=== PATIENT | female | born 1995 | race Two or more races ===

== ENCOUNTER 2020-02-27 15:11 | Emergency (ER) | payer OTHER, SELFPAY ==
[2020-02-27 15:51] VITALS: BP 112/74; PULSE 72; RESP 18; TEMP 36.9; O2SAT 99; BMI 22.4
[2020-02-27 16:25] LABS: MANUAL DIFF FLAG NO
[2020-02-27 16:26] LABS: Basophils Percent Auto 0.2 % (0-2); Eosinophils Absolute Auto 0.1 X10*3/uL (0.0-0.4); Eosinophils Percent Auto 1.1 % (0-4); Hemoglobin 13.1 g/dl (12.0-16.0); Imm Gran Abs Auto 0.03 X10*3/uL (0.00-0.03); Imm Gran Pct Auto 0.5 % (0.0-0.4); Lymphocytes Absolute Auto 1.8 X10*3/uL (1.2-4.9); Lymphocytes Percent Auto 28.8 % (20-40); Mean Corpuscular Hemoglobin 26.4 pg (27.0-33.0); Mean Corpuscular Volume 82.5 fL (80-98); Mean Platelet Volume 8.7 fL (9.4-12.3); Monocytes Absolute Auto 0.4 X10*3/uL (0.1-1.2); Monocytes Percent Auto 6.9 % (2-11); Neutrophils Absolute Auto 3.9 X10*3/uL (2.0-8.3); Neutrophils Percent Auto 62.5 % (45-73); Platelet Count 263 X10*3/uL (160-400); Red Blood Count 4.97 X10*6/uL (4.20-5.50); Red Cell Distribution Width 14.5 % (11.0-16.0); White Blood Count 6.2 X10*3/uL (4.8-10.8)
[2020-02-27 17:03] LABS: Alanine Aminotransferase 13 U/L (0-31); Alkaline Phosphatase 68 U/L (39-117); Anion Gap 12 (12-20); Aspartate Amino Transferase 15 U/L (5-31); Bilirubin Total 0.2 mg/dL (0.0-1.0); Blood Urea Nitrogen 8 mg/dL (9-16); Calcium 8.6 mg/dL (8.4-10.2); Carbon Dioxide 28 mmol/L (22-29); Chloride 107 mmol/L (96-108); Creatinine Clr Calc Pharmacy 112.7; Estimated Glomerular Filt Rate > 60; Glucose Random 90 mg/dL (60-115); Potassium 4.7 mmol/l (3.3-5.1); Sodium 142 mmol/L (135-145)
--- NOTE | 2020-02-27 17:07 | ED.GENADULT ---
HPI - General Adult General Chief complaint: General Medical Stated complaint: lung pain Time Seen by Provider: 02/27/20 16:47 Source: patient Mode of arrival: ambulatory Limitations: no limitations History of Present Illness HPI narrative: Patient comes to the emergency room complaining of upper right-sided midback pain started today. Patient complaining of cough worsening the pain. Patient states if she turns her body towards the left side, the right side of her back started hurting. Patient denies fever. Onset (ago): day(s) Radiation: non-radiation Pain Consistency: constant Relieving factors: none Exacerbating factors: movement and other ( Cough) Related Data Allergies Allergy/AdvReac Type Severity Reaction Status Date / Time No Known Allergies Allergy Verified 02/27/20 16:19 Review of Systems Review of Systems: Constitutional : No Weight loss, No Fever, No Chills, No Night Sweats, No Fatigue, No Malaise ENT/Mouth : No Hearing loss, No Ear Pain, No Nasal Congestion, No Sinus Pain, No Hoarseness, No sore throat, No Rhinorrhea, No Swallowing Difficulty Eyes: No Eye Pain, No Swelling, No Redness, No Foreign Body, No Discharge, No Vision Changes Cardiovascular : No Chest Pain, No SOB, No Dyspnea on Exertion, No Orthopnea, No Edema, No Palpitations Respiratory : mild Cough, No Sputum, No Wheezing, No Smoke Exposure, No Dyspnea Gastrointestinal : No Nausea, No Vomiting, No Diarrhea, No Constipation, No abdominal Pain, No Hematochezia, No Melena Genitourinary : no irregular bleeding, No Dysuria, No Urinary Frequency, No Hematuria, No Urinary Incontinence, No Urgency, No Flank Pain, No Urinary Flow Changes, No Hesitancy Musculoskeletal : No joint pain, right upper back pain Skin : No Skin Lesions, No rash Neuro : No Weakness, No Numbness, No Paresthesias, No Loss of Consciousness, No Dizziness, No Headache Psych : No Anxiety/Panic, No Depression, No SI/HI/AH/VH, No Social Issues, Heme/Lymph: No Bruising, No Bleeding,No Lymphadenopathy Endocrine : No Polyuria, No Polydipsia, No Temperature Intolerance PMFSH Past Medical History Medical History Patient denies medical problems Patient denies significant medical history Social History Social History Alcohol intake: never Smoking Status: Current every day smoker Smoked in Last 30 Days: Yes Use of substances other than those prescribed or required for medical reasons: Yes Substance Use Type: Marijuana Substance Use Frequency: Occasionally Last Used Substance: Unknown Any prior treatment program specific to substance use: No Advance Directives: No Advance Directives Information Provided: Yes Physical Exam Vital Signs: Vital Signs: Vital Signs Temp Pulse Resp BP Pulse Ox 02/27/20 17:47 98.4 F 71 18 113/69 02/27/20 15:51 98.4 F 72 18 112/74 99 Body Mass Index 22.4 Appearance: Alert. Oriented X3. No acute distress. Eyes: Pupils equal, round and reactive to light. ENT: Pharynx normal. Neck: Normal inspection. Neck supple. No lymph nodes noted. No crepitus CVS: Normal heart rate and rhythm. Pulses normal. Normal S1 and S2 Respiratory: No respiratory distress. Breath sounds normal. No Wheezing. No rales Abdomen: Soft and nontender. No rigidity. No distention. good BS x4 Skin: Skin warm and dry. Normal skin color. Normal skin turgor. Extremities: No lower extremity edema. No lower extremity edema. No Lacerations. No Rash back: tenderness to palpation over the right upper back Neuro: Oriented X 3. No motor deficit. No sensory deficit. Moving all extermities. No slurred speech. Course Course Course Narrative: I discussed labs and imaging with the patient, patient likely having musculoskeletal Medical Decision Making MDM Narrative Medical decision making narrative: patient's pain likely musculoskeletal Lab Data Result diagrams: 02/27/20 16:17 02/27/20 16:17 Labs: Lab Results 02/27/20 02/27/20 02/27/20 Range/Units 16:17 16:17 16:17 WBC 6.2 (4.8-10.8) X10*3/uL RBC 4.97 (4.20-5.50) X10*6/uL Hgb 13.1 (12.0-16.0) g/dl Hct 41.0 (37-47) % MCV 82.5 (80-98) fL MCH 26.4 L (27.0-33.0) pg MCHC 32.0 (31.0-35.0) g/dl RDW 14.5 (11.0-16.0) % Plt Count 263 (160-400) X10*3/uL MPV 8.7 L (9.4-12.3) fL Immature Gran % (Auto) 0.5 H (0.0-0.4) % Neut % (Auto) 62.5 (45-73) % Lymph % (Auto) 28.8 (20-40) % [place] % (Auto) 6.9 (2-11) % Eos % (Auto) 1.1 (0-4) % Baso % (Auto) 0.2 (0-2) % Lymph # (Auto) 1.8 (1.2-4.9) X10*3/uL [place] # (Auto) 0.4 (0.1-1.2) X10*3/uL Eos # (Auto) 0.1 (0.0-0.4) X10*3/uL Baso # (Auto) 0.0 (0.0-0.2) X10*3/uL Abs Immat Gran (auto) 0.03 (0.00-0.03) X10*3/uL Absolute Neuts (auto) 3.9 (2.0-8.3) X10*3/uL Absolute Nucleated RBC 0.000 (0.0-0.012) X10*3/uL Nucleated RBC % (auto) 0.0 (0.0-0.2) /100WBC Hold Blue Top SEE NOTE Sodium 142 (135-145) mmol/L Potassium 4.7 (3.3-5.1) mmol/l Chloride 107 (96-108) mmol/L Carbon Dioxide 28 (22-29) mmol/L Anion Gap 12 (12-20) BUN 8 L (9-16) mg/dL Creatinine 0.67 (0.5-1.4) mg/dL Estim Creat Clear Calc 112.7 Estimated GFR > 60 Random Glucose 90 (60-115) mg/dL Calcium 8.6 (8.4-10.2) mg/dL Total Bilirubin 0.2 (0.0-1.0) mg/dL AST 15 (5-31) U/L ALT 13 (0-31) U/L Alkaline Phosphatase 68 (39-117) U/L Total Protein 7.0 (6.5-8.0) g/dL Albumin 4.0 (3.5-5.0) g/dL Urine Color Urine Appearance Urine pH (5.0-8.0) Ur Specific [place] (1.005-1.025) Urine Protein (NEG-TRACE) MG/DL Urine Glucose (UA) (NEG) MG/DL Urine Ketones (NEG) MG/DL Urine Blood (NEG) Urine Nitrite (NEG) Ur Leukocyte Esterase (NEG) Urine Test (NEGATIVE) 02/27/20 02/27/20 Range/Units 17:20 17:20 WBC (4.8-10.8) X10*3/uL RBC (4.20-5.50) X10*6/uL Hgb (12.0-16.0) g/dl Hct (37-47) % MCV (80-98) fL MCH (27.0-33.0) pg MCHC (31.0-35.0) g/dl RDW (11.0-16.0) % Plt Count (160-400) X10*3/uL MPV (9.4-12.3) fL Immature Gran % (Auto) (0.0-0.4) % Neut % (Auto) (45-73) % Lymph % (Auto) (20-40) % [place] % (Auto) (2-11) % Eos % (Auto) (0-4) % Baso % (Auto) (0-2) % Lymph # (Auto) (1.2-4.9) X10*3/uL [place] # (Auto) (0.1-1.2) X10*3/uL Eos # (Auto) (0.0-0.4) X10*3/uL Baso # (Auto) (0.0-0.2) X10*3/uL Abs Immat Gran (auto) (0.00-0.03) X10*3/uL Absolute Neuts (auto) (2.0-8.3) X10*3/uL Absolute Nucleated RBC (0.0-0.012) X10*3/uL Nucleated RBC % (auto) (0.0-0.2) /100WBC Hold Blue Top Sodium (135-145) mmol/L Potassium (3.3-5.1) mmol/l Chloride (96-108) mmol/L Carbon Dioxide (22-29) mmol/L Anion Gap (12-20) BUN (9-16) mg/dL Creatinine (0.5-1.4) mg/dL Estim Creat Clear Calc Estimated GFR Random Glucose (60-115) mg/dL Calcium (8.4-10.2) mg/dL Total Bilirubin (0.0-1.0) mg/dL AST (5-31) U/L ALT (0-31) U/L Alkaline Phosphatase (39-117) U/L Total Protein (6.5-8.0) g/dL Albumin (3.5-5.0) g/dL Urine Color YELLOW Urine Appearance CLEAR Urine pH 7.0 (5.0-8.0) Ur Specific [place] 1.020 (1.005-1.025) Urine Protein NEG (NEG-TRACE) MG/DL Urine Glucose (UA) NEG (NEG) MG/DL Urine Ketones NEG (NEG) MG/DL Urine Blood NEG (NEG) Urine Nitrite NEG (NEG) Ur Leukocyte Esterase NEG (NEG) Urine Test NEGATIVE (NEGATIVE) Imaging Data Chest x-ray: Radiologist's impression: No evidence for acute disease. Discharge Plan Discharge Clinical Impression: Back pain Patient Disposition: Home, Self-Care Instructions: Back Pain (ED) Additional Instructions: Please follow-up with your primary care physician tomorrow. If you have any worsening or new symptoms, please return to the emergency room or call 911
[2020-02-27 17:26] LABS: Glucose Urine UA NEG (NEG); Leukocyte Esterase Urine NEG (NEG); Nitrite Urine NEG (NEG); Urine Blood NEG (NEG); Urine Ketones NEG (NEG); Urine Protein NEG (NEG-TRACE)
[2020-02-27 17:29] LABS: Appearance Urine CLEAR; Color Urine YELLOW
[2020-02-27 17:30] LABS: UPreg QC Valid YES
[2020-02-27 17:31] LABS: Urine Pregnancy NEGATIVE (NEGATIVE)
[2020-02-27 17:47] VITALS: BP 113/69; PULSE 71; RESP 18; TEMP 36.9
--- NOTE | 2020-02-27 17:51 | PC.NURSE ---
patient a&ox3, talking on cell phone, vitals obtained/stable, will continue to monitor.
--- NOTE | 2020-02-27 19:10 | PC.NURSE ---
Pt resting in stretcher c/o pain to right middle back area. Pt A&Ox3, skin w/d. respirations easy, n/l. Pt awaiting further orders.
--- NOTE | 2020-02-27 19:26 | XR_ITS ---
EXAMINATION: CHEST 2 VIEWS CLINICAL INFORMATION: Pain with inspiration. COMPARISON: July 06, 2014. TECHNIQUE: PA and lateral views of the chest were obtained. FINDINGS: The cardiac silhouette is not enlarged. The mediastinal and hilar contours are unremarkable. There are neither pleural effusions nor pneumothoraces. There are no consolidations. The osseous structures are stable. IMPRESSION: No evidence for acute disease.
[2020-02-27] MEDS: Ibuprofen 600 MG TABLET PO (20:51)
== END 2020-02-27 20:56 | disposition home or self-care (01) ==
PROVIDERS: Emergency Provider Emergency Medicine
DX: M54.5 Low back pain (principal); R05 Cough; R07.1 Chest pain on breathing; F17.200 Nicotine dependence, unspecified, uncomplicated; Z71.6 Tobacco abuse counseling
CPT/HCPCS: 36415; 71046; 80053; 81003; 81025; 85025; 99283; 99284

== ENCOUNTER 2020-02-28 16:45 | Outpatient (REF) | payer OTHER, SELFPAY | END 2020-02-28 16:46 | disposition home or self-care (01) | LOC: HO.LAB 16:45 | PROVIDERS: Visit Provider Internal Medicine | DX: Z20.828 Contact with and (suspected) exposure to other viral communicable diseases (principal) | CPT/HCPCS: 87635 ==

== ENCOUNTER 2020-09-22 20:09 | Emergency (ER) | payer OTHER, SELFPAY ==
--- NOTE | ~2020-09-22 | XR_ITS ---
EXAMINATION: XR HAND, LEFT CLINICAL INFORMATION: Swelling status post injury COMPARISON: None TECHNIQUE: PA, lateral, and oblique views of the left hand. FINDINGS: The bones and soft tissues are normal. No fracture. Alignment is anatomic. Joint spaces are maintained. Faint calcifications about the soft tissues of the first metacarpal head noted likely dystrophic. XR/XR hand LT 2V IMPRESSION: No fracture.
[2020-09-22 20:13] VITALS: BP 118/73; PULSE 69; RESP 16; TEMP 37.1; O2SAT 100; BMI 20.3
--- NOTE | 2020-09-22 21:17 | ED.EXTPRO ---
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 got superficial skin avulsion at the base of left thumb complaining of pain in the whole thumb without any significant swelling or bruise normal sensation Related Data Previous Rx's Medication Instructions Recorded ibuprofen 600 mg PO Q6H PRN #14 tab 09/22/20 Allergies Allergy/AdvReac Type Severity Reaction Status Date / Time No Known Allergies Allergy Verified 02/27/20 16:19 Review of Systems Review of Systems: Yes all other systems are reviewed and are negative PMFSH Past Medical History Medical History Patient denies medical problems Patient denies significant medical history Social History Social History Alcohol intake: never Smoking Status: Current every day smoker Substance Use Type: Marijuana Advance Directives: No Advance Directives Information Provided: No Patient : No Physical Exam Vital Signs: Vital Signs: Last Vital Signs Temp 98.8 F 09/22/20 20:13 Pulse 69 09/22/20 20:13 Resp 16 09/22/20 20:13 BP 118/73 09/22/20 20:13 Pulse Ox 100 09/22/20 20:13 Body Mass Index 20.3 Const: General: no acute distress Extrem: Hand/finger images: 1. Superficial skin avulsion Neurovascular intact no swelling of the left thumb Good range of movement Procedures Orthopedic Splinting/Casting Injury #1: Side: left Upper Extremity Injury Location: finger (Left thumb) Upper Extremity Immobilizer: aluminum form splint Discharge Plan Discharge Clinical Impression: Contusion of left thumb Qualifiers: Encounter type: initial encounter Damage to nail status: without damage Qualified Code(s): S60.012A - Contusion of left thumb without damage to nail, initial encounter Patient Disposition: Home, Self-Care Instructions: Contusion in Adults (ED) Additional Instructions: Local care as advised. Splint for support Ibuprofen for pain Prescriptions: New ibuprofen 600 mg tablet 600 mg PO Q6H PRN (Reason: pain) Qty: 14 RF: 0
[2020-09-22] MEDS: Ibuprofen 600 MG TABLET PO (22:19)
== END 2020-09-22 22:49 | disposition home or self-care (01) ==
PROVIDERS: Emergency Provider Internal Medicine
DX: S60.012A Contusion of left thumb without damage to nail, initial encounter (principal); W23.1XXA Caught, crushed, jammed, or pinched between stationary objects, initial encounter; F17.200 Nicotine dependence, unspecified, uncomplicated; F12.90 Cannabis use, unspecified, uncomplicated; Y93.89 Activity, other specified; Y92.59 Other trade areas as the place of occurrence of the external cause; Y99.0 Civilian activity done for income or pay
CPT/HCPCS: 29130; 73120; 99283

== ENCOUNTER → 2020-09-24 11:07 | Outpatient (BNVA) | payer OTHER, SELFPAY | PROVIDERS: Visit Provider Physician Assistant Medical | DX: S61.012A Laceration without foreign body of left thumb without damage to nail, initial encounter (principal); W31.89XA Contact with other specified machinery, initial encounter | CPT/HCPCS: 99203 ==

== ENCOUNTER → 2020-09-28 13:02 | Outpatient (BNVA) | payer OTHER, SELFPAY | PROVIDERS: Visit Provider Physician Assistant | DX: S61.112A Laceration without foreign body of left thumb with damage to nail, initial encounter (principal); X58.XXXA Exposure to other specified factors, initial encounter | CPT/HCPCS: 99213 ==

== ENCOUNTER 2020-11-15 13:39 | Emergency (ER) | payer OTHER, SELFPAY ==
[2020-11-15 14:02] VITALS: BP 105/71; PULSE 71; RESP 16; TEMP 36.7; O2SAT 97; BMI 22.3
--- NOTE | 2020-11-15 14:43 | ED_ITS ---
HPI - General Adult General Chief complaint: General Medical Stated complaint: multiple complaints Time Seen by Provider: 11/15/20 14:40 Source: patient and diplomatic interpreter/translator Mode of arrival: ambulatory Limitations: no limitations History of Present Illness HPI narrative: 25-year-old female came in for evaluation of anxiety, patient been suffering from anxiety since her childhood, patient get episodes of anxiety inform of hyperventilation, unable to speak, patient had episode of anxiety last night here today for bilateral leg pain, patient declined any trauma since yesterday. Related Data Previous Rx's Medication Instructions Recorded ibuprofen 600 mg PO Q6H PRN #14 tab 09/22/20 cefuroxime axetil 500 mg PO BID #14 tab 11/15/20 hydroxyzine HCl 25 mg PO TID PRN #20 tab 11/15/20 Allergies Allergy/AdvReac Type Severity Reaction Status Date / Time No Known Allergies Allergy Verified 02/27/20 16:19 Review of Systems Review of Systems: All other systems are reviewed and are negative Constitutional: Reports as per HPI and Reports no additional constitutional complaints Eyes: Reports as per HPI and Reports no additional eye complaints Reports system reviewed and no additional complaints, except as documented Cardiovascular: Reports as per HPI and Reports no additional cardiovascular complaints Respiratory: Reports as per HPI and Reports no additional respiratory complaints Gastrointestinal: Reports as per HPI and Reports no additional gastrointestinal complaints Genitourinary: Reports no additional female genitourinary complaints Musculoskeletal: Reports no additional musculoskeletal complaints Skin/Breast: Reports system reviewed and no additional complaints, except as docu Psychiatric: Reports no additional psychiatric complaints Endocrine: Reports no additional endocrine complaints Hematologic/Lymphatic: Reports no additional hematologic/lymphatic complaints Allergic/Immunologic: Reports no additional allergic/immunologic complaints Reports system reviewed and no additional complaints, except as documented and Reports Abnormal speech present [facility] Past Medical History Medical History Patient denies medical problems Patient denies significant medical history Social History Social History Alcohol intake: never Patient Tobacco Use Status: Never used Tobacco Substance Use Type: Marijuana Advance Directives: No Advance Directives Information Provided: No Patient : No Physical Exam Vital Signs: Vital Signs: Last Vital Signs Temp 98.6 F 11/15/20 16:00 Pulse 16 L 11/15/20 16:00 Resp 16 07/08/21 16:00 BP 100/72 11/15/20 16:00 Pulse Ox 99 11/15/20 16:00 Body Mass Index 22.3 vital signs have been reviewed as appeared to be correct. Blood pressure normal. Heart rate normal. Respiration rate normal. Temperature normal. Oxygen saturation normal. Appearance: Alert. Oriented X3. No acute distress. Head: Normal external exam. Normocephalic. Atraumatic. No Hernández signs noted. No raccoon eyes noted Eyes: PERRLA. EOMI. Conjunctiva and sclera normal. Eyelids normal. ENT: TM's Normal. Pharynx normal. Uvula midline. Moist mucous membranes. No trismus noted. No drooling noted. No muffled voice noted. Neck: Normal inspection. Neck supple. FROM. No adenopathy. Thyroid Normal. No meningeal signs. No neck mass noted. CVS: Normal heart rate and rhythm. Heart sound normal. No murmurs noted. Pulses normal throughout. Respiratory: No respiratory distress. Painless inspiration. Breath sounds normal. No wheezes/rales/rhonchi noted. Chest nontender. No accessory muscle usage noted or decreased air movement noted. Abdomen: Soft and nontender. Bowel sounds normal in all 4 quadrants. No distention noted. No organomegaly noted. No visible injury noted. Back: No CVA tenderness. Full range of motion noted. Skin: Skin warm and dry. Normal skin color. Normal skin turgor. No rashes/lesions/lacerations noted. Extremities: No lower extremity edema. Extremities exhibit normal range of motion. Extremities nontender. Neuro: Oriented X 3. No motor deficit. No sensory deficit. Reflexes normal. Course Course Course Narrative: chronic anxiety, no depression, no SI. Start patient on Atarax and have the patient follow-up with PCP for further evaluation. Medical Decision Making Lab Data Result diagrams: 11/15/20 15:35 11/15/20 15:35 Labs: Lab Results 11/15/20 11/15/20 11/15/20 Range/Units 15:35 15:35 15:35 WBC 14.1 H (4.8-10.8) X10*3/uL RBC 5.30 (4.20-5.50) X10*6/uL Hgb 13.9 (12.0-16.0) g/dl Hct 42.9 (37-47) % MCV 80.9 (80-98) fL MCH 26.2 L (27.0-33.0) pg MCHC 32.4 (31.0-35.0) g/dl RDW 14.1 (11.0-16.0) % Plt Count 345 D (160-400) X10*3/uL MPV 8.5 L (9.4-12.3) fL Immature Gran % (Auto) 0.5 H (0.0-0.4) % Neut % (Auto) 75.0 H (45-73) % Lymph % (Auto) 18.7 L (20-40) % [place] % (Auto) 5.3 (2-11) % Eos % (Auto) 0.4 (0-4) % Baso % (Auto) 0.1 (0-2) % Lymph # (Auto) 2.6 (1.2-4.9) X10*3/uL [place] # (Auto) 0.8 (0.1-1.2) X10*3/uL Eos # (Auto) 0.1 (0.0-0.4) X10*3/uL Baso # (Auto) 0.0 (0.0-0.2) X10*3/uL Abs Immat Gran (auto) 0.07 H (0.00-0.03) X10*3/uL Absolute Neuts (auto) 10.6 H (2.0-8.3) X10*3/uL Absolute Nucleated RBC 0.000 (0.0-0.012) X10*3/uL Nucleated RBC % (auto) 0.0 (0.0-0.2) /100WBC Urine Color YELLOW Urine Appearance HAZY Urine pH 6.0 (5.0-8.0) Ur Specific [place] >= 1.030 H (1.005-1.025) Urine Protein NEG (NEG-TRACE) MG/DL Urine Glucose (UA) NEG (NEG) MG/DL Urine Ketones NEG (NEG) MG/DL Urine Blood NEG (NEG) Urine Nitrite NEG (NEG) Ur Leukocyte Esterase 2+ H (NEG) Urine RBC 0-2 (0) /HPF Urine WBC 10-14 H (0-4) /HPF Ur Squamous Epith Cells TRACE /LPF Urine Bacteria TRACE /LPF Urine Mucus TRACE /LPF Urine Test NEGATIVE (NEGATIVE) Discharge Plan Discharge Clinical Impression: Anxiety UTI (urinary tract infection) Qualifiers: Urinary tract infection type: acute cystitis Hematuria presence: without hematuria Qualified Code(s): N30.00 - Acute cystitis without hematuria Patient Disposition: Home, Self-Care Instructions: Anxiety (ED), Urinary Tract Infection in Women (ED) Prescriptions: New hydroxyzine HCl 25 mg tablet 25 mg PO TID PRN (Reason: anxiety) Qty: 20 RF: 0 cefuroxime axetil 500 mg tablet 500 mg PO BID Qty: 14 RF: 0 No Action ibuprofen 600 mg tablet 600 mg PO Q6H PRN (Reason: pain) Qty: 14 RF: 0 Referrals: Physician,None [Primary Care Provider] - 2 days
[2020-11-15 16:00] VITALS: BP 100/72; PULSE 16; RESP 16; TEMP 37; O2SAT 99
[2020-11-15 16:00] LABS: MANUAL DIFF FLAG NO
[2020-11-15 16:04] LABS: Basophils Percent Auto 0.1 % (0-2); Eosinophils Absolute Auto 0.1 X10*3/uL (0.0-0.4); Eosinophils Percent Auto 0.4 % (0-4); Hematocrit 42.9 % (37-47); Hemoglobin 13.9 g/dl (12.0-16.0); Imm Gran Abs Auto 0.07 X10*3/uL (0.00-0.03); Imm Gran Pct Auto 0.5 % (0.0-0.4); Lymphocytes Absolute Auto 2.6 X10*3/uL (1.2-4.9); Lymphocytes Percent Auto 18.7 % (20-40); Mean Corpuscular HGB Conc 32.4 g/dl (31.0-35.0); Mean Corpuscular Hemoglobin 26.2 pg (27.0-33.0); Mean Corpuscular Volume 80.9 fL (80-98); Mean Platelet Volume 8.5 fL (9.4-12.3); Monocytes Absolute Auto 0.8 X10*3/uL (0.1-1.2); Monocytes Percent Auto 5.3 % (2-11); Neutrophils Absolute Auto 10.6 X10*3/uL (2.0-8.3); Platelet Count 345 X10*3/uL (160-400); Red Cell Distribution Width 14.1 % (11.0-16.0); White Blood Count 14.1 X10*3/uL (4.8-10.8)
[2020-11-15 16:11] LABS: Glucose Urine UA NEG (NEG); Leukocyte Esterase Urine 2+ (NEG); Nitrite Urine NEG (NEG); Specific Gravity - Urine >= 1.030 (1.005-1.025); UACC Culture Trigger YES; Urine Blood NEG (NEG); Urine Ketones NEG (NEG); Urine Protein NEG (NEG-TRACE)
[2020-11-15 16:13] LABS: UPreg QC Valid YES; Urine Pregnancy NEGATIVE (NEGATIVE)
[2020-11-15 16:14] LABS: Appearance Urine HAZY; Color Urine YELLOW
[2020-11-15 16:22] LABS: Bacteria Urine TRACE /LPF; Mucus Urine TRACE /LPF; RBC Urine 0-2 /HPF (0); Squamous Epithelial Cell Urine TRACE /LPF
[2020-11-15 16:28] LABS: Anion Gap 14 (12-20); Blood Urea Nitrogen 7 mg/dL (9-16); Calcium 9.5 mg/dL (8.4-10.2); Carbon Dioxide 22 mmol/L (22-29); Chloride 107 mmol/L (96-108); Creatinine Clr Calc Pharmacy 106.9; Estimated Glomerular Filt Rate > 60; Glucose Random 77 mg/dL (60-115); Potassium 4.1 mmol/L (3.3-5.1); Sodium 139 mmol/L (135-145)
[2020-11-15] MEDS: Ibuprofen 600 MG TABLET PO (16:43)
== END 2020-11-15 16:46 | disposition home or self-care (01) ==
PROVIDERS: Emergency Provider Emergency Medicine
DX: F41.9 Anxiety disorder, unspecified (principal); N30.00 Acute cystitis without hematuria
CPT/HCPCS: 36415; 80048; 81001; 81003; 81025; 82550; 85025; 87086; 99283; 99284

== ENCOUNTER 2024-08-10 11:27 | Emergency (ER) | payer OTHER, SELFPAY ==
--- NOTE | ~2024-08-10 | CT_ITS ---
EXAMINATION: CT HEAD AND FACIAL BONES WITHOUT CONTRAST CLINICAL INFORMATION: Right orbital ecchymosis after trauma. 29-year-old female. COMPARISON: None TECHNIQUE: Contiguous axial imaging was performed from the skull base to vertex, as well as the maxillofacial bones/mandible without intravenous administration of contrast. Multiplanar reformatted imaging was constructed from the axial data set. This CT examination was performed using dose optimization techniques as appropriate, variously including the following: *Automated exposure control *Adjustment of mA and/or kV according to patient size (this includes techniques or standardized protocols for targeted exams where dose is matched to indication/reason for exam; i.e. extremities or head) *Use of iterative reconstruction technique FINDINGS: CT HEAD: There is no evidence of intracranial hemorrhage or extra-axial fluid collection. There is no mass effect, or edema. No CT evidence of acute territorial infarct. Ventricles, sulci, and cisterns are normal in size and configuration for patient age. No hydrocephalus. No midline shift. Negative hyperdense MCA sign. Negative insular ribbon sign. No significant white matter abnormalities. Normal pituitary. Globes and orbital contents image normally. No extracranial soft tissue abnormalities. The calvarium and skull base are intact without fracture. CT MAXILLOFACIAL BONES: The mandible is intact without fracture. The TM joints are normally oriented. The nasal bones, nasal process, maxilla, orbits, zygomatic arches, pterygoid plates, and sphenoid bone are intact without fracture. No significant nasal septal deviation. Small torus palatini. Paranasal sinuses are normally pneumatized throughout. No paranasal sinus fractures. The mastoids and tympanic cavities are normally aerated. Imaged maxillofacial/neck soft tissues appear normal. CT/CT facial bones wo IV con IMPRESSION: 1. No acute intracranial abnormalities. No calvarial or skull base fracture. 2. No acute maxillofacial or mandibular fractures. Electronically signed by: Nikolas Flores MD 08/10/2024 02:33 PM EDT
--- NOTE | ~2024-08-10 | XR_ITS ---
EXAMINATION: XR RIBS, LEFT CLINICAL INFORMATION: pain s/p trauma COMPARISON: February 27, 2020 TECHNIQUE: 3 views of the left ribs were obtained. FINDINGS: No consolidation, pleural effusion or pneumothorax. Cardiomediastinal silhouette size is normal. There is a BB skin marker in the lower left hemithorax. No acute cortical disruption in the ribs left lower hemithorax. Mild S-shaped curvature of the mid thoracic spine which could be positional. XR/XR ribs LT min 3V w CXR1V IMPRESSION: No acute rib fracture, left hemithorax. No acute airspace disease. Electronically signed by: Abdon Jolly MD 08/10/2024 01:48 PM EDT
[2024-08-10 12:37] VITALS: BP 116/89; PULSE 98; RESP 18; TEMP 36.9; O2SAT 97; BMI 23.3
--- NOTE | 2024-08-10 12:39 | ED_ITS ---
HPI - General Adult General Chief complaint: Back Pain/Injury Stated complaint: 1 Week Left Side Pain Time Seen by Provider: 08/10/24 15:58 Source: patient and RN notes reviewed Mode of arrival: ambulatory Limitations: no limitations History of Present Illness ED Provider: Precious Rosen PA-C [facility] narrative: This is a 29-year-old female who presents emergency department with complaints of left-sided rib pain for the last week. Patient states that she was moving a washing and dryer machine 1 week ago and has had pain since. Patient the drier tender naphthalene accidentally struck the right side of her face during the move. Denies trauma to left ribs however has pain in this region. Denies LOC. Patient reports that she continues to have left-sided rib pain. She denies any fevers, chills, chest pain, shortness of breath, abdominal pain, nausea, vomiting or diarrhea. Denies any urinary frequency, urgency, hematuria. She denies taking any medications at home prior to arrival. Denies any other complaints or concerns at this time. MD complaint: left-sided rib pain Onset (ago): week(s) Radiation: non-radiation Quality: aching Pain Consistency: constant Relieving factors: none Exacerbating factors: none Associated symptoms: denies other symptoms Treatments prior to arrival: none Related Data Previous Rx's ?Medication ?Instructions ?Recorded ibuprofen 600 mg tablet 600 mg PO Q6H PRN pain #14 tabs 09/22/20 cefuroxime axetil 500 mg tablet 500 mg PO BID #14 tabs 11/15/20 hydroxyzine HCl 25 mg tablet 25 mg PO TID PRN anxiety #20 tabs 11/15/20 acetaminophen 500 mg tablet 1,000 mg (2 x 500 mg) PO Q6H PRN 08/10/24 (Tylenol Extra Strength) pain #30 tabs ibuprofen 600 mg tablet 600 mg PO Q6H PRN pain #30 tabs 08/10/24 lidocaine 5 % topical patch 1 patch topical Q24H #30 ea 08/10/24 Allergies Allergy/AdvReac Type Severity Reaction Status Date / Time No Known Allergies Allergy Verified 08/10/24 12:42 Review of Systems Review of Systems: Yes all other systems are reviewed and are negative Constitutional: Constitutional: Reports as per [facility] Past Medical History Attestation statement: The following information was validated with the patient. Medical History Patient denies significant medical history Patient denies medical problems Social History Social History Alcohol intake: never Patient Tobacco Use Status: Never used Tobacco Substance Use Type: Marijuana Advance Directives: No Advance Directives Information Provided: No Physical Exam ED Vital Signs: Vital Signs - 24 hr 08/10/24 12:37 08/10/24 15:59 Temperature 98.4 F 97.7 F Pulse Rate 98 82 Respiratory Rate 18 18 Blood Pressure 116/89 111/69 Pulse Oximetry 97 98 Oxygen Delivery Method Room Air Room Air BMI result Body Mass Index 23.3 Const General: cooperative, comfortable and no acute distress Orientation/consciousness: patient oriented x3 Limitations: no limitations HENMT Head: Yes normal to inspection, Yes normocephalic and Yes atraumatic Ears: hearing grossly normal bilaterally General nose exam: Normal external nose present Face and sinus: Yes normal facial exam Mouth: Normal oral and palatal mucosa present, oropharynx normal and moist mucous membranes Throat: Yes posterior oropharynx normal Eyes Other: right infraorbital region with mild ecchymosis seen, No edema noted, no bony step-off or deformity. No subcutaneous emphysema noted. No orbital entrapment. General: appearance normal, both eyes and all related structures Eyelids: Yes eyelids normal Conjunctivae: conjunctivae normal Sclerae: sclerae normal Pupils: Equal, round and reactive pupils present EOM: EOMs intact bilaterally Neck Neck: Yes normal visual inspection, Yes full ROM and Yes no lymphadenopathy Lymphatic: no lymphadenopathy noted Chest Other: Tenderness palpation along the left Anterior lateral chest wall, no bony step-off or deformity. No crepitus noted. Chest palpation & inspection: normal inspection of the chest Resp Effort & Inspection: normal respiratory effort and able to speak in complete sentences Auscultation: clear to auscultation bilaterally, no crackles, no rales, no rhonchi and no wheezes Cardio Rate: regular rate Rhythm: regular rhythm Heart sounds: S1 normal heart sound present and S2 normal heart sound present GI Other: abdomen is soft, nontender, nondistended. no left upper quadrant tenderness. No ecchymosis seen. Inspection: Yes normal to inspection Other: no CVA tenderness Skin General skin exam: no rashes or lesions noted Trauma: no lacerations or abrasions Wounds: no wounds Neuro General: patient oriented x3 and moves all extremities Cranial nerves: Yes Equal, round and reactive pupils present Extrem General: Yes normal to inspection Right upper extremity: normal to inspection Left upper extremity: normal to inspection Right lower extremity: normal to inspection Left lower extremity: normal to inspection Course Course Course Narrative: This is an RME: Additional HPI, ROS, PE not included below will be deferred to primary provider. RME assessment and note performed by: Precious Rosen PA-C This is a 29-year-old female who presents emergency department for evaluation of left sided rib pain s/p moving a bus person dishwasher 1 week ago. She has had pain in her left side of her ribs since. She states that the drier tender naphthalene struck her in the right side of her face. Orbital ecchymosis noted. No chance of . Plan: CT head, facial bones, and x-ray left ribs. Reevaluation(s) Reevaluation #1: CT head, facial bones, and left rib x-ray unremarkable. On nursing triage note, it was reported that patient had urinary symptoms, this was not appreciated during the examination. Patient given strict return precautions. She understands and agrees with plan. Patient stable for discharge. Medical Decision Making Medical Decision Making [facility] Narrative: this is a 29-year-old female who presents emergency department with complaints of left-sided rib pain since moving a washing and dry or machine. On arrival, vital signs within normal limits. She is speaking full sentences under no acute distress. She is neurologically intact with no acute findings. Patient does have slight ecchymosis seen in her right orbital region, will obtain CT head and facial bones to rule out any acute process. Will also obtain left rib x- ray to rule out rib fracture/ pneumothorax. Patient is speaking in full sentences under no acute distress, lungs are clear to auscultation bilaterally. She has point tenderness palpation along the left lateral ribs, with no bony step-off or deformity. Differential diagnoses include acute fracture, contusion, muscle strain, sprain. Differential Diagnosis Differential Diagnoses: The differential diagnosis associated with the presentation includes see above Lab Data [facility] Lab Attestation statement: I reviewed the patient's lab results. Radiology Impression Discussion of test interpretation with radiology: I have reviewed the radiologist's reading. Radiologist Impression: Report Number: [id number]: Total DLP = 254.00 mGy-cm EXAMINATION: CT HEAD AND FACIAL BONES WITHOUT CONTRAST CLINICAL INFORMATION: Right orbital ecchymosis after trauma. 29-year-old female. COMPARISON: None TECHNIQUE: Contiguous axial imaging was performed from the skull base to vertex, as well as the maxillofacial bones/mandible without intravenous administration of contrast. Multiplanar reformatted imaging was constructed from the axial data set. This CT examination was performed using dose optimization techniques as appropriate, variously including the following: *Automated exposure control *Adjustment of mA and/or kV according to patient size (this includes techniques or standardized protocols for targeted exams where dose is matched to indication/reason for exam; i.e. extremities or head) *Use of iterative reconstruction technique FINDINGS: CT HEAD: There is no evidence of intracranial hemorrhage or extra-axial fluid collection. There is no mass effect, or edema. No CT evidence of acute territorial infarct. Ventricles, sulci, and cisterns are normal in size and configuration for patient age. No hydrocephalus. No midline shift. Negative hyperdense MCA sign. Negative insular ribbon sign. No significant white matter abnormalities. Normal pituitary. Globes and orbital contents image normally. No extracranial soft tissue abnormalities. The calvarium and skull base are intact without fracture. CT MAXILLOFACIAL BONES: The mandible is intact without fracture. The TM joints are normally oriented. The nasal bones, nasal process, maxilla, orbits, zygomatic arches, pterygoid plates, and sphenoid bone are intact without fracture. No significant nasal septal deviation. Small torus palatini. Paranasal sinuses are normally pneumatized throughout. No paranasal sinus fractures. The mastoids and tympanic cavities are normally aerated. Imaged maxillofacial/neck soft tissues appear normal. CT/CT facial bones wo IV con IMPRESSION: 1. No acute intracranial abnormalities. No calvarial or skull base fracture. 2. No acute maxillofacial or mandibular fractures. Electronically signed by: Nikolas Flores MD 08/10/2024 02:33 PM EDT Dictated By: Nikolas Flores MD EXAMINATION: XR RIBS, LEFT CLINICAL INFORMATION: pain s/p trauma COMPARISON: February 27, 2020 TECHNIQUE: 3 views of the left ribs were obtained. FINDINGS: No consolidation, pleural effusion or pneumothorax. Cardiomediastinal silhouette size is normal. There is a BB skin marker in the lower left hemithorax. No acute cortical disruption in the ribs left lower hemithorax. Mild S-shaped curvature of the mid thoracic spine which could be positional. XR/XR ribs LT min 3V w CXR1V IMPRESSION: No acute rib fracture, left hemithorax. No acute airspace disease. Electronically signed by: Abdon Jolly MD 08/10/2024 01:48 PM EDT RP Dictated By: Abdon Rodríguez MD Report Number: [id number]: Total DLP = 579.00 mGy-cm EXAMINATION: CT HEAD AND FACIAL BONES WITHOUT CONTRAST CLINICAL INFORMATION: Right orbital ecchymosis after trauma. 29-year-old female. COMPARISON: None TECHNIQUE: Contiguous axial imaging was performed from the skull base to vertex, as well as the maxillofacial bones/mandible without intravenous administration of contrast. Multiplanar reformatted imaging was constructed from the axial data set. This CT examination was performed using dose optimization techniques as appropriate, variously including the following: *Automated exposure control *Adjustment of mA and/or kV according to patient size (this includes techniques or standardized protocols for targeted exams where dose is matched to indication/reason for exam; i.e. extremities or head) *Use of iterative reconstruction technique FINDINGS: CT HEAD: There is no evidence of intracranial hemorrhage or extra-axial fluid collection. There is no mass effect, or edema. No CT evidence of acute territorial infarct. Ventricles, sulci, and cisterns are normal in size and configuration for patient age. No hydrocephalus. No midline shift. Negative hyperdense MCA sign. Negative insular ribbon sign. No significant white matter abnormalities. Normal pituitary. Globes and orbital contents image normally. No extracranial soft tissue abnormalities. The calvarium and skull base are intact without fracture. CT MAXILLOFACIAL BONES: The mandible is intact without fracture. The TM joints are normally oriented. The nasal bones, nasal process, maxilla, orbits, zygomatic arches, pterygoid plates, and sphenoid bone are intact without fracture. No significant nasal septal deviation. Small torus palatini. Paranasal sinuses are normally pneumatized throughout. No paranasal sinus fractures. The mastoids and tympanic cavities are normally aerated. Imaged maxillofacial/neck soft tissues appear normal. CT/CT head/brain wo IV con IMPRESSION: 1. No acute intracranial abnormalities. No calvarial or skull base fracture. 2. No acute maxillofacial or mandibular fractures. Electronically signed by: Nikolas Flores MD 08/10/2024 02:33 PM EDT RP Dictated By: Nikolas Flores MD Discharge Plan Discharge Clinical Impression: Contusion of rib on left side, Contusion of face Patient Disposition: Home, Self-Care Instructions: Rib Contusion (ED), Facial Contusion (ED) Additional Instructions: You were seen in the emergency department due to left rib pain, and headache. Your x-ray does not show any broken bones. Your head and facial CT do not show any broken bones. Please alternate between ibuprofen and Tylenol for pain. Use lidocaine patches. Splint your last side during coughing and sneezing. Please take big breaths while your breathing to prevent pneumonia. If any new or worsening symptoms occur including but not limited to worsening chest pain, shortness for breath, severe headache, dizziness, please seek emergent care. Prescriptions: New ibuprofen 600 mg tablet 600 mg PO Q6H PRN (Reason: pain) Qty: 30 0RF acetaminophen [Tylenol Extra Strength] 500 mg tablet 1,000 mg PO Q6H PRN (Reason: pain) Qty: 30 0RF lidocaine 5 % adhesive patch,medicated 1 patch topical Q24H Qty: 30 0RF Rx Instructions: leave on most painful area for up to 12 hrs No Action ibuprofen 600 mg tablet 600 mg PO Q6H PRN (Reason: pain) Qty: 14 0RF hydroxyzine HCl 25 mg tablet 25 mg PO TID PRN (Reason: anxiety) Qty: 20 0RF cefuroxime axetil 500 mg tablet 500 mg PO BID Qty: 14 0RF Interventions: ED Discharge Assessment Last Done: 08/10/24 16:23 Discharge Date/Time: 08/10/24 16:24 Print Language: Swedish
[2024-08-10 15:59] VITALS: BP 111/69; PULSE 82; RESP 18; TEMP 36.5; O2SAT 98
[2024-08-10 16:23] VITALS: BP 111/69; PULSE 82; RESP 18; TEMP 36.5; O2SAT 98
== END 2024-08-10 16:24 | disposition home or self-care (01) ==
PROVIDERS: Emergency Provider Emergency Medicine
DX: S20.212A Contusion of left front wall of thorax, initial encounter (principal); S00.83XA Contusion of other part of head, initial encounter; R07.81 Pleurodynia; M54.50 Low back pain, unspecified; X50.9XXA Other and unspecified overexertion or strenuous movements or postures, initial encounter; Y93.9 Activity, unspecified; Y92.9 Unspecified place or not applicable; Y99.8 Other external cause status
CPT/HCPCS: 70450; 70486; 71101; 99282; 99284

== ENCOUNTER → 2024-08-10 12:42 | Outpatient (BNV) | payer OTHER, SELFPAY | PROVIDERS: Visit Provider Radiology Diagnostic Radiology | DX: S05.11XA Contusion of eyeball and orbital tissues, right eye, initial encounter (principal); R07.81 Pleurodynia | CPT/HCPCS: 70450; 70486; 71101 ==